=== PATIENT | male | born 1980 | race Two or more races ===

== ENCOUNTER 2019-10-28 11:57 | Emergency (ER) | payer OTHER ==
[~2019-10-28] VITALS: Ht 172.7 cm; Wt 84.4 kg
[2019-10-28 12:00] VITALS: BP 118/78
[2019-10-28] MEDS: LIDOCAINE 1% HCL (LOCAL ANESTH.) INJ 20ML MDV ONE (13:41)
[2019-10-28] MEDS: LIDOCAINE 1% HCL (LOCAL ANESTH.) INJ 20ML MDV IJ ONE (14:12)
[2019-10-28] MEDS: ACETAMINOPHEN/CODEINE#3 (300/30mg) TAB PO ONE (14:14)
== END 2019-10-28 15:51 | disposition home or self-care (01) ==
LOC: EDBD 11:57 → EEVIPCON 12:04 → ER 12:04
DX: S02.2XXA Fracture of nasal bones, initial encounter for closed fracture (principal); S01.21XA Laceration without foreign body of nose, initial encounter; R07.81 Pleurodynia; Y04.2XXA Assault by strike against or bumped into by another person, initial encounter; Y93.89 Activity, other specified; Y92.89 Other specified places as the place of occurrence of the external cause; Y99.8 Other external cause status
CPT/HCPCS: 12011; 70450; 70486; 71101; 99284; J2001